=== PATIENT | male | born 1960 | race Caucasian/White ===

== ENCOUNTER 2023-02-17 09:55 | Inpatient (IN) ==
--- NOTE | 2023-02-10 10:25 | Anesthesiology Consultation ---
Date of Service February 10, 2023 Assessment & Plan (1) Encounter for pre-operative examination: Chart Review Chart Review: Acceptable Risk for Surgery and Patient NOT seen in Pre Admission Testing -COVID screening: Per PAT nursing assessment on 02/10/23. No known COVID-19 positive contacts or current COVID-19 related symptoms. Travel screen negative. Patient is partially vaccinated for Covid. At surgeon discretion if preop Covid testing being done. History Surgery Operation Date: 02/17/23 11:35 Proposed Procedures p L4-L5 Decompression and Fusion, L5-S1 Hardware Removal Spinal Cord Monitoring - Jackson Cuevas DO Height/Weight Height: 5 ft 7 in Weight: 107.501 kg Allergies Allergy/AdvReac Type Severity Reaction Status Date / Time No Known Allergies Allergy Unknown Verified 02/10/23 09:48 Medications Home Medications Medication Instructions Recorded Confirmed Last Taken gabapentin 300 mg capsule 600 mg PO HS 02/10/23 02/10/23 Unknown Past Medical History Medical History History of COVID-03 Sep 2022 > not hospitalized Migraine none for a while Neuropathy right side down leg on occasion Osteoarthritis Past Surgical History Surgical History Fusion of spine lumbar History of colonoscopy History of nasal septoplasty History of tonsillectomy History of tooth extraction History of total knee replacement right 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 Hx of umbilical hernia repair Social History Smoking Status: Former smoker tobacco type: smokeless tobacco Do You Dip or Chew Tobacco: Yes (advised npo status by nursing) Smoking End Date: 2010 Hx Alcohol Use: No Hx Substance Use: No substance use type: does not use Lab Results Anesthesia Preop Results Results Anesthesia Widget: WBC 8.66 K/ul (4.8-10.8) 02/04/23 Hgb 15.1 g/dl (14.0-18.0) 02/04/23 Hct 42.0 % (42.0-52.0) 02/04/23 Plt 283 K/uL (130-400) 02/04/23 Na 138 mmol/L (136-145) 02/04/23 K 3.9 mmol/L (3.5-5.1) 02/04/23 Cl 104 mmol/L (98-107) 02/04/23 CO2 25 mmol/L (21-32) 02/04/23 BUN 18 mg/dl (6-23) 02/04/23 Creat 0.85 mg/dl (0.6-1.4) 02/04/23 Glucose Level 86 mg/dl (70-99(Fasting)) 02/04/23 PT 10.6 Seconds (9.0-12.0) 02/04/23 PTT 28.8 Seconds (21.0-31.0) 02/04/23 INR 1.0 (0.9-1.1) 02/04/23 Urine Color Yellow 02/04/23 Urine Appearance Clear (Clear) 02/04/23 Urine pH 5.5 (4.5-7.5) 02/04/23 Urine Specific Elizabeth 1.025 (1.000-1.030) 02/04/23 Urine Protein Negative (Negative) 02/04/23 Urine Glucose (UA) Negative (Negative) 02/04/23 Urine Ketones Negative (Negative) 02/04/23 Urine Blood Trace (Negative) H 02/04/23 Urine Nitrite Negative (Negative) 02/04/23 Urine Bilirubin Negative (Negative) 02/04/23 Urine Urobilinogen Negative (Negative) 02/04/23 Urine Leukocyte Esterase Negative (Negative) 02/04/23 Urine WBC (Auto) 1-5 /hpf (0-5) 02/04/23 Urine RBC (Auto) 5-10 /hpf (0-4) H 02/04/23 Urine Hyaline Casts (Auto) 1-5 /lpf (0-5) 02/04/23 Urine Epithelial Cells (Auto) 0-5 /lpf (0-5) 02/04/23 Urine Bacteria (Auto) Negative (Negative) 02/04/23 Blood Type O Negative 02/04/23 Antibody Screen NEGATIVE 02/04/23 Testing Laboratory Results 02/04/23= URINE CULTURE: Three types of organisms present, all low counts probable skin zacarias Electrocardiogram Date: 02/04/23 Findings: + SB @ (59bpm) Otherwise normal EKG per cardio Chest X-Ray Date: 02/04/23 Findings: + NAD FINDINGS: PA and lateral chest radiographs are compared to study dated 04/13/2010. The heart is mildly enlarged. The pulmonary vasculature is noncongested. Chronic interstitial thickening is similar to previous. The lungs and pleural spaces are clear. There is no pneumothorax. The skeletal structures are osteopenic. The bony thorax appears intact.
[~2023-02-17 09:55] MED LIST: ACETAMINOPHEN 500 MG TAB PO SCH; CeleBREX 200 MG CAP PO SCH; GABAPENTIN 600 MG DOSE PO SCH; LR 15ML/HR IV SCH; ceFAZolin 2000MG 2,000 MG/15 ML SYR IV SCH
[2023-02-17] MEDS ORDERED: HYDROmorphone INJ 1 MG/ML SYRINGE IV PRN ×2 (11:08→15:29)
[2023-02-17] MEDS ORDERED: ePHEDrine sulfate 50 MG/ML AMP IV PRN (11:08)
[2023-02-17] MEDS ORDERED: ONDANSETRON INJ 2 MG/ML 2 ML VIAL IV PRN ×2 (11:08→15:29)
[2023-02-17] MEDS ORDERED: ATROPINE SULFATE 0.1 MG/ML 10ML SYR IV PRN (11:08)
--- NOTE | 2023-02-17 11:20 | History & Physical Bridge Note ---
Date of Service February 17, 2023 History & Physical Bridge Note I have examined the patient, reviewed the History & Physical and in the interval since the performance of the History & Physical I have noted the following changes of clinical significance: no changes noted
--- NOTE | 2023-02-17 11:21 | History & Physical Report ---
Date of Service February 17, 2023 Assessment & Plan (1) Neurogenic claudication due to lumbar spinal stenosis: Plan: L4-L5 decompression and fusion, L5-S1 hardware removal History of Present Illness Chief Complaint: Back and leg pain Primary Care Provider: Iban Richardson MD This is a 8-year-old male who presents with chronic persistent back and leg pain after failing course of nonoperative care is here for surgical invention. Allergies Allergy/AdvReac Type Severity Reaction Status Date / Time No Known Allergies Allergy Unknown Verified 02/17/23 10:30 Home Medications Medication Instructions Recorded Confirmed Type No Known Home Medications 02/17/23 02/17/23 History Past Med/Surg History Medical History History of COVID-03 Sep 2022 > not hospitalized Migraine none for a while Neuropathy right side down leg on occasion Osteoarthritis Surgical History Fusion of spine lumbar History of colonoscopy History of nasal septoplasty History of tonsillectomy History of tooth extraction History of total knee replacement right 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 Hx of umbilical hernia repair Social History Smoking Status: Former smoker Smoking End Date: 2010; Second Hand Exposure: No; Do You Dip or Chew Tobacco: Yes (advised npo status by nursing); Tobacco Cessation Education Requested by Patient: No Hx Alcohol Use: No Hx Substance Use: No Preferred Language: Ivorian Communication Ability: Effective Diamond Sorter Required: No Beliefs That Will Affect Care: None Current Living Situation: Spouse Other Information That Helps Us Care for You: No Feels Safe at Home: Yes Safety Concerns: Feels Safe At This Time Assistive Devices: Glasses Physical Exam Physical Exam: Patient is alert and oriented Heart regular rhythm Lungs clear Results & Data Results & Data Vital Signs (Past 12 Hours) Vital Signs Temp Pulse Resp BP Pulse Ox O2 Del Method 02/17/23 10:33 36.4 C L 50 L 20 142/78 H 97 Room Air
[2023-02-17] MEDS ORDERED: BUPIVACAINE/EPINEPHRINE 0.25% 1:200,000 30 ML VIAL ONE (11:24)
[2023-02-17] MEDS ORDERED: ceFAZolin 330 MG/ML 1 GM VIAL ONE (11:24)
[2023-02-17] MEDS ORDERED: HYDROmorphone INJ 2 MG/ML SYR/VIAL ONE (11:30)
[2023-02-17] MEDS ORDERED: DEXAMETHASONE SOD INJ 4 MG/ML VIAL ONE (11:30)
[2023-02-17] MEDS ORDERED: ONDANSETRON INJ 2 MG/ML 2 ML VIAL ONE (11:30)
[2023-02-17] MEDS ORDERED: MIDAZOLAM HCL 1 MG/ML 2ML VIAL ONE (11:30)
[2023-02-17] MEDS ORDERED: GLYCOPYRROLATE 0.2 MG/ML VIAL ONE (11:30)
[2023-02-17] MEDS ORDERED: PROPOFOL IV EMULSION 10 MG/ML 20 ML VIAL IV ONE (11:30)
[2023-02-17] MEDS ORDERED: NEOSTIGMINE METHYLSULFATE 1 MG/ML 10ML VIAL ONE (11:30)
[2023-02-17] MEDS ORDERED: LIDOCAINE 2% MPF LOCAL 5 ML VIAL ONE (11:30)
[2023-02-17] MEDS ORDERED: ROCURONIUM BROMIDE 10 MG/ML 5 ML VIAL IV ONE (11:30)
[2023-02-17] MEDS ORDERED: FLOSEAL HEMOSTATIC MATRIX 10ML TOP ONE (13:47)
--- NOTE | 2023-02-17 13:57 | Operative Report ---
Post Operative Report Pre & Post Diagnosis Operation Date: 02/17/23 11:25 Pre-Op Diagnosis: Neurogenic Claudication due to Lumbar Spinal Stenosis Post-Op Diagnosis: Neurogenic Claudication due to Lumbar Spinal Stenosis I identified the patient and participated in the time-out.: Yes Procedure Operation Date: 02/17/23 11:25 Actual Procedures #1 removal of instrumentation L5-S1. #2 exploration of fusion L5-S1. #3 lumbar decompression bilaterally facetectomies and foraminotomies L3-L4 L4-5 per #4 posterior spinal fusion L4-5. #5 placement of instrumentation L4-L5. #6 interbody fusion L4-5 per #7 placement of Spira 15 x 26 mm at L4-5. #8 placement locally harvested morselized autograft in the posterior gutters. #9 placement of I factor amount of the test and interbody space and posterior gutters. Surgeon Jackson Cuevas, DO Government Relations Director Nata Villalba Estimated Blood Loss 600 Findings See Below The patient is 5 foot 7 weighing over 106 kg and a BMI in excess of 36. The patient's body habitus combined with an EBL of greater than 600 cc created significant technical difficulty and at least 50% increased to the operative time. Specimens None Indications This is a 62-year-old male who presents above-mentioned diagnosis after failed course of nonoperative care is here for surgical invention. Description of Procedure Patient was met with identified informed consent obtained. Patient was then taken to the operative suite underwent intubation placed in a prone position on the Joe table atop the Karel frame. All bony promises well-padded eyes inspected to ensure no external pressure placed upon the. This point the lumbar spine was prepped and draped in normal sterile fashion. Sharp dissection with the assistance of Bovie cautery performed down to and exposing the lamina and transverse processes of L4 and instrumentation L5-S1 bilaterally. And then proceeded move the hardware bilaterally explore the fusion mass noting it to be mature and intact. I then performed a complete laminectomy of L4 partial mapping L3 including bilateral medial facetectomies and foraminotomies addressing severe spinal stenosis. Pedicle screws were then placed in L4 and L5 bilaterally with assistance of fluoroscopy and the properly sized estella placed. By way of a trans foraminal approach on the right complete discectomy of L for L5 was performed endplates curetted to subcortical bleeding bone and a 15 x 26 mm Spira cage with I factor tapped in position. The rods were then locked into final position bilaterally. The transverse processes of L4 and L5 burred to subcortically and bone. I factor amount of the test and locally harvested morselized autograft was placed in the posterior gutters. 15 round SANDRA drain inserted. The incision was then closed with 1 Vicryl the fascia 2-0 Vicryl subcutaneously and 4 Monocryl for final skin closure. Steri-Strips and a sterile dressing placed. Patient awakened and taken to PACU in stable condition. Please note spinal cord monitoring was utilized at the procedure no changes noted. Lastly Nata Villalba was present at the entire surgery and while the patient positioning complex portion of the surgery and final skin closure. I attest to the content of the Intraoperative Record and any orders documented therein. Any exceptions are noted below.
[2023-02-17] MEDS: fentaNYL citrate PF 100 MCG/2 ML VIAL IV PRN ×2 (14:17→14:29)
--- NOTE | 2023-02-17 15:00 | Anesthesiology Progress Note ---
Date of Service February 17, 2023 Anesthesia Post Procedure Vital Signs Vital Signs: Temp Pulse Pulse Resp BP BP Pulse Ox 02/17/23 14:30 70 12 111/69 97 02/17/23 14:40 72 12 101/68 93 02/17/23 14:20 84 10 L 103/69 96 02/17/23 14:10 96.8 F L 96 H 12 127/104 H 98 02/17/23 10:33 97.5 F L 50 L 20 142/78 H 97 O2 Del Method O2 Flow Rate 02/17/23 14:30 Oxymask 6 02/17/23 14:40 Oxymask 3 02/17/23 14:20 Oxymask 6 02/17/23 14:10 Nasal Cannula 3 02/17/23 10:33 Room Air Pain Intensity Lower Back: Pain Intensity: 5 Right Leg: Pain Intensity: 8 Transfer of Care Handoff Completed per policy Notes Mental Status: alert / awake / arousable and participated in evaluation Patient Amnestic to Procedure: Yes Nausea / Vomiting: adequately controlled Pain: adequately controlled Airway Patency, RR, SpO2: stable & adequate BP & HR: stable & adequate Hydration State: stable & adequate Anesthetic Complications: no major complications apparent and Pt Satisfied with anesthetic care
--- NOTE | 2023-02-17 15:11 | Fluoroscopy Report ---
FL lumbar spine 2-3V CLINICAL HISTORY: L4-5 DFI/L5-S1 HR COMPARISON STUDY: None. FLUOROSCOPY TIME: 8 seconds. EXPOSURE DOSE: 7.88 mGy FLUOROSCOPIC IMAGES: 2 FINDINGS: Fluoroscopy was provided during L4-L5 discectomy, posterior decompression and bilateral ped icle screw fusion. The hardware is intact. Hardware was removed at the L5-S1 level. An L5-S1 disc spa cer remains in place. IMPRESSION: Fluoroscopy provided during hardware removal and subsequent L4-L5 discectomy, posterior decompression and bilateral pedicle screw fusion. ACT 112: Negative or not required by law. Electronically signed by: Kimani Isaacs M.D. 02/17/2023 3:10 PM
[2023-02-17] MEDS ORDERED: MAGNESIUM HYDROXIDE SUSP 30 ML UDC PO PRN (15:29)
[2023-02-17] MEDS ORDERED: ACETAMINOPHEN 1,000 MG/100 ML VIAL IV PRN (15:29)
[2023-02-17] MEDS ORDERED: FAMOTIDINE 20 MG TAB PO PRN (15:29)
[2023-02-17] MEDS ORDERED: METOCLOPRAMIDE HCL INJ 5 MG/ML 2 ML VIAL IV PRN (15:29)
[2023-02-17] MEDS ORDERED: LORazepam 2 MG/1 ML VIAL IV PRN (15:29)
[2023-02-17] MEDS ORDERED: SOD PHOSPHATE/SOD BIPHOSPHATE ENEMA 132 ML BTL PR PRN (15:29)
[2023-02-17] MEDS ORDERED: hydrOXYzine HCl 25 MG TAB PO PRN (15:29)
[2023-02-17] MEDS ORDERED: DO NOT ADMINISTER FLU VACCINE PRN (15:29)
[2023-02-17] MEDS ORDERED: LORazepam 0.5 MG TAB PO PRN (15:29)
[2023-02-17] MEDS ORDERED: DO NOT ADMINISTER PNEUMOCOCCAL VACCINE PRN (15:29)
[2023-02-17] MEDS ORDERED: traMADol HCL 50 MG TABLET PO PRN (15:29)
[2023-02-17] MEDS ORDERED: ONDANSETRON 4 MG OD TAB PO PRN (15:29)
[2023-02-17] MEDS ORDERED: ACETAMINOPHEN 500 MG TAB PO PRN (15:29)
[2023-02-17] MEDS ORDERED: PROMETHAZINE HCL 12.5 MG in SODIUM CHLORIDE 0.9% 50 ML IV PRN (15:29)
[2023-02-17] MEDS ORDERED: NALOXONE HCL 0.4 MG/1 ML VIAL/CARP IV PRN (15:29)
[2023-02-17] MEDS ORDERED: diphenhydrAMINE Capsule 25 MG CAP PO PRN (15:29)
[2023-02-17] MEDS ORDERED: ALUMINUM/MAGNESIUM SUSP 30 ML UDC PO PRN (15:29)
[2023-02-17] MEDS ORDERED: bisacodyL 10 MG SUPP PR PRN (15:29)
[2023-02-17] MEDS ORDERED: HYDROmorphone INJ 0.5 MG/0.5 ML SYR IV PRN (15:29)
[2023-02-17] MEDS: LACTATED RINGER'S 1,000 ML IV SCH ×2 (15:37→17:38)
--- NOTE | 2023-02-17 16:19 | Hospitalist Consultation ---
Date of Consultation February 17, 2023 Assessment & Plan (1) Neurogenic claudication due to lumbar spinal stenosis: - Pain management, bowel regimen and DVT ppx per the primary team - PT/OT consults, pt is planning on outpatient therapy - Follow am CBC to monitor for acute blood loss (2) Obesity (BMI 35.0-39.9 without comorbidity): - BMI of 36.8, diet and exercise to be encouraged for obesity s/p spinal surgery (3) Seasonal allergies: - Pt may resume seasonal allergy medications if needed during hospital stay (4) Tobacco use: - Chews snuff, 1 can in two days for adult life, cessation encouraged at bedside. - Pt denies the need for nicotine patch DVT ppx: - teds, scds CODE: FULL Dispo: From home, lives with who is present at bedside. Likely to remain in the hospital x 1-2 days A total of 40 minutes were spent with greater than 50% of that time face to face with the patient, personally reviewing all current laboratories, imaging studies, past medication reconciliation, outpatient chart review, and discussion with specialists to collaborate care for the patient with attending. Please see attending documentation for corrections and/or additions. Supervising Physician Co-Signing Physician Notes Patient seen and examined at bedside as consulted for medical management status post lumbar spine surgery for neurogenic claudication due to lumbar spinal stenosis. Patient was lying in bed, on room air, hemodynamically stable, denies any flulike illness or febrile illness in the last 1 week. Patient reports improvement in his right greater than left lower extremity radicular pain does report operative site pain. DVT prophylaxis, PT/OT per primary. Incentive spirometer. Resume home meds as able. Patient not on months of home meds. On examination: GENERAL: Alert and oriented x3. NAD, on 2L NC O2, obese class II HEENT: No pallor, no icterus. Pupils equal, round and reactive to light. Oral mucosa moist. NECK: No JVD, no neck masses. HEART: S1 and S2 heard. Regular rate and rhythm. No murmur, no gallop. RESPIRATORY SYSTEM: Normal AP diameter. No accessory muscle use. No wheezing, no crackles. ABDOMEN: Soft, bowel sounds present, nontender, no distention. CENTRAL NERVOUS SYSTEM: No facial droop. Speech is clear. Obeys simple commands. Moves extremities. EXTREMITIES: No edema, no erythema seen. Low back with clean dressing without soakage, SANDRA drain with minimal serosanguineous collection noted. Distal neurovascular status WNL. I have seen and examined the patient and have discussed the case with the provider above. I agree with the assessment and plan as stated. History of Present Illness Reason for Consultation: Medical management Requesting Physician: Dr. Cuevas Attending Physician: Jackson Cuevas, DO History of Present Illness This is a 62-year-old male with PMHx of prediabetes, chronic allergic rhinitis, with history of previous lumbar surgery who presents to the hospital for elective lumbar decompression fusion by Dr. Cuevas. His is present with him at bedside. Right after coming up from PACU had some intermittent nausea, however nursing at bedside reports that he drank an entire cup full of water after coming up from PACU. He reports his mouth is dry. He reports some left- sided foot numbness compared to right, but is able to move his lower extremities bilaterally without difficulty. Last bowel movement was this morning, reports history of constipation with previous lumbar surgeries. Pt is pain free, joking, good sense of humor and sarcastic at times. Pt has prescription for certerizine and for fluticasone nasal spray for seasonal allergies but has not started taking it yet. He does not take any other medications as he was told by a doctor to wean off gapabentin as outpatient prior to surgery and has done so. Pt is enjoying chocolate ice cream now. Allergies Allergy/AdvReac Type Severity Reaction Status Date / Time No Known Allergies Allergy Unknown Verified 02/17/23 10:30 Home Medications Medication Instructions Recorded Confirmed Type cetirizine 10 mg tablet 10 mg PO DAILY 02/17/23 02/17/23 History fluticasone propionate 50 2 spray intranasal QAM 02/17/23 02/17/23 History mcg/actuation nasal spray,suspension Patient History Medical History History of COVID-03 Sep 2022 > not hospitalized Migraine none for a while Neuropathy right side down leg on occasion Osteoarthritis Surgical History Fusion of spine lumbar History of colonoscopy History of nasal septoplasty History of tonsillectomy History of tooth extraction History of total knee replacement right 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 Hx of umbilical hernia repair Family History (Updated 02/17/23 @ 16:15 by Royd Ontiveros PA-C) Other Cancer Diabetes Social History Smoking Status: Never smoker Smoking End Date: 2010; Second Hand Exposure: No; Do You Dip or Chew Tobacco: Yes (advised npo status by nursing); Tobacco Cessation Education Requested by Patient: No Hx Alcohol Use: No Hx Substance Use: No Preferred Language: Hungarian Communication Ability: Effective Welcome Desk Agent Required: No Beliefs That Will Affect Care: None Current Living Situation: Spouse Other Information That Helps Us Care for You: No Feels Safe at Home: Yes Safety Concerns: Feels Safe At This Time Assistive Devices: Cane and Walker Review of Systems Review of Systems: Constitutional: No fever, sweats or chills Eyes: No diplopia, no worsening or blurred vision ENT: normal hearing, no trouble swallowing Respiratory: No cough, sputum, dyspnea at rest or on exertion Cardiovascular: No chest pain, tightness or palpitations Abdomen: No pain, nausea, vomiting, diarrhea or constipation Musculoskeletal: No joint pain, calf pain, swelling Neurologic: No weakness, numbness/tingling, or balance problems Psychiatric: No anxiety or depression Skin: No rash or itch Physical Exam Physical Exam: General: awake, alert, no apparent distress, + obese with BMI of 36.8 Head: Normocephalic, atraumatic ENT: PERRL, EOMI, no pharyngeal exudate, mucous membranes moist Chest: Clear to auscultation, on room air, no adventitious breath sounds Cardiac: Regular rate and rhythm, no murmur, no JVD, normal peripheral pulses, good capillary refill Abdominal: NABS x 4 quadrants, soft, nondistended, nontender to palpation, no rebound or guarding Back: dressing c/d/i, SANDRA drain in place with serosanginous bloody outs Extremities: Normal inspection, no peripheral edema or erythema, calfs nontender to palpation Psych: Normal mood and affect Neuro: AAO x 3, strength intact bilaterally and rated 5/5, no motor deficits, speech is clear, Left sided foot numbness compared to right, no other peripheral sensory deficits Results & Data Results & Data Vital Signs (Past 12 Hours) Vital Signs Temp Pulse Pulse Resp BP BP Pulse Ox 02/17/23 15:50 69 16 107/69 95 02/17/23 15:30 36.7 C 86 18 98/46 L 98 02/17/23 14:30 70 12 111/69 97 02/17/23 15:10 77 12 125/71 98 02/17/23 15:00 68 12 113/63 93 02/17/23 14:50 36.1 C L 74 12 92/58 L 93 02/17/23 14:40 72 12 101/68 93 02/17/23 14:20 84 10 L 103/69 96 02/17/23 14:10 36.0 C L 96 H 12 127/104 H 98 02/17/23 10:33 36.4 C L 50 L 20 142/78 H 97 O2 Del Method O2 Flow Rate 02/17/23 15:50 Nasal Cannula 2 02/17/23 15:30 Nasal Cannula 2 02/17/23 14:30 Oxymask 6 02/17/23 15:10 Nasal Cannula 2 02/17/23 15:00 Nasal Cannula 2 02/17/23 14:50 Nasal Cannula 2 02/17/23 14:40 Oxymask 3 02/17/23 14:20 Oxymask 6 02/17/23 14:10 Nasal Cannula 3 02/17/23 10:33 Room Air
[2023-02-17] MEDS: oxyCODONE HCL IR 5 MG TAB (IMMEDIATE RELEASE) PO PRN (21:20)
[2023-02-17] MEDS: DOCUSATE SODIUM/SENNA 50/8.6MG TAB PO SCH (21:21)
[2023-02-17] MEDS: ceFAZolin 2000MG 2,000 MG/15 ML SYR IV SCH (21:21)
[2023-02-18] MEDS: ceFAZolin 2000MG 2,000 MG/15 ML SYR IV SCH (04:47)
[2023-02-18] MEDS: POLYETHYLENE (MIRALAX) 17 GM PACK PO SCH ×4 (05:35→21:57)
[2023-02-18] MEDS ORDERED: SODIUM CHLORIDE 0.9% 1000ML 1,000 ML IV SCH (07:45)
[2023-02-18 07:56] LABS: Basophils # (auto) 0.03 K/uL (0-0.2); Basophils % (auto) 0.2 %; Eosinophils # (auto) 0.01 K/uL (0-0.50); Eosinophils % (auto) 0.1 %; Hematocrit (blood only) 36.6 % (42.0-52.0); Hemoglobin 12.7 g/dl (14.0-18.0); Immature Granulocytes # (auto) 0.42 K/uL (0.01-0.20); Immature Granulocytes % (auto) 2.3 %; Lymphocytes # (auto) 1.44 K/uL (1.2-3.4); Lymphocytes % (auto) 7.8 %; Mean Corpuscular Hemoglobin 30.7 pg (25.0-34.0); Mean Corpuscular Hgb Conc 34.7 g/dL (32.0-36.0); Mean Corpuscular Volume 88.4 fL (80.0-100.0); Mean Platelet Volume 10.1 fL (9.4-12.4); Monocytes # (auto) 1.26 K/uL (0.11-0.59); Monocytes % (auto) 6.8 %; Neutrophils # (auto) 15.37 K/uL (1.40-6.50); Neutrophils % (auto) 82.8 %; Platelet Count 280 K/uL (130-400); RDW Standard Deviation 42.3 fL (36.4-46.3); Red Blood Count 4.14 M/uL (4.70-6.10); White Blood Count 18.53 K/ul (4.8-10.8)
[2023-02-18] MEDS: dexAMETHasone 6 MG in SYRINGE 0 ML IV SCH (07:57)
[2023-02-18] MEDS: oxyCODONE HCL IR 5 MG TAB (IMMEDIATE RELEASE) PO PRN ×3 (08:02→21:54)
[2023-02-18 08:23] LABS: BUN Creatinine Ratio 20.2 (10-20); Calcium 9.2 mg/dl (8.6-10.3); Creatinine Clr Calc Pharmacy 102.7 ml/min; Est GFR (African American) 107.7 ml/min; Est GFR (Non-African American) 92.9 ml/min; Potassium 4.3 mmol/L (3.5-5.1)
--- NOTE | 2023-02-18 12:10 | Orthopedic Progress Note ---
Date of Service February 18, 2023 Assessment & Plan (1) Neurogenic claudication due to lumbar spinal stenosis: Plan: This time we will continue physical therapy monitor his SANDRA operatively discharge home tomorrow. Admission and Anticipated Discharge Date Admission Date: February 17, 2023 Subjective Back pain controlled leg pain markedly improved Physical Exam Physical Exam: Patient is in the chair at the bedside. Is constricted testing. Appears co mfortable. Results & Data Vital Signs (Past 12 Hours) Vital Signs Temp Pulse Resp BP BP Pulse Ox O2 Del Method 02/18/23 11:08 57 L 16 103/63 94 Room Air 02/18/23 07:51 69 117/75 02/18/23 07:27 36.5 C 64 16 90/50 L 95 Room Air 02/18/23 02:09 108/67 02/18/23 02:05 36.8 C 77 18 92/57 L 95 Room Air
--- NOTE | 2023-02-18 16:28 | Hospitalist Progress Note ---
Date of Service February 18, 2023 Assessment & Plan (1) Neurogenic claudication due to lumbar spinal stenosis: Plan: Status post L4/L5 decompression fusion L5-S1 hardware removal Patient stable overall Hemoglobin 12, repeat tomorrow Denies dizziness, chest pain, shortness of breath We will monitor closely (2) Obesity (BMI 35.0-39.9 without comorbidity): Plan: - BMI of 36.8, diet and exercise advised (3) Seasonal allergies: Plan: No symptoms (4) Tobacco use: Plan: Counseling done DVT ppx: - teds, scds CODE: FULL Admission and Anticipated Discharge Date Admission Date: February 17, 2023 Subjective Follow-up for status post back surgery, etc. Seen resting in bed, in good spirits States he feels fine overall Ambulated in the hallways twice with no symptoms no chest pain, dyspnea, palpitations, dizziness Denies back pain No other new symptoms Review of Systems Review of Systems: all noted and negative except for above Physical Exam Physical Exam: General- oriented x 3, not in distress, speaks in sentences with no effort or accessory muscle use Eyes- anicteric Neck- no JVD Lungs- clear breath sounds bilaterally, no rales/wheezes Heart- normal rate, regular rhythm; no murmurs Abdomen- normal bowel sounds, nondistended, soft, nontender Extremities- no pretibial edema, no calf tenderness Back-dressing in place, drain in place-serosanguineous output Neuro- alert, oriented x 3; no gross focal neurologic deficits Skin- warm & dry Results & Data Results & Data Vital Signs (Past 12 Hours) Vital Signs Temp Pulse Resp BP Pulse Ox O2 Del Method 02/18/23 14:23 36.6 C 73 16 130/71 95 Room Air 02/18/23 11:08 57 L 16 103/63 94 Room Air 02/18/23 07:51 69 117/75 02/18/23 07:27 36.5 C 64 16 90/50 L 95 Room Air
[2023-02-18] MEDS: DOCUSATE SODIUM/SENNA 50/8.6MG TAB PO SCH (21:54)
[2023-02-19] MEDS: POLYETHYLENE (MIRALAX) 17 GM PACK PO SCH (05:51)
[2023-02-19 08:15] LABS: Hemoglobin 12.2 g/dl (14.0-18.0); Mean Corpuscular Hemoglobin 30.7 pg (25.0-34.0); Mean Corpuscular Hgb Conc 34.9 g/dL (32.0-36.0); Mean Corpuscular Volume 87.9 fL (80.0-100.0); Mean Platelet Volume 9.8 fL (9.4-12.4); Platelet Count 277 K/uL (130-400); RDW Coefficient of Variation 13.2 % (11.5-14.5); RDW Standard Deviation 42.5 fL (36.4-46.3); Red Blood Count 3.98 M/uL (4.70-6.10); White Blood Count 16.65 K/ul (4.8-10.8)
--- NOTE | 2023-02-19 08:28 | Discharge Summary ---
Date of Service February 19, 2023 Admission HPI Per Admitting Provider This is a 8-year-old male who presents with chronic persistent back and leg pain after failing course of nonoperative care is here for surgical invention. Principal Diagnosis Lumbar spinal stenosis with neurogenic claudication Discharge Data Allergies Allergy/AdvReac Type Severity Reaction Status Date / Time No Known Allergies Allergy Unknown Verified 02/17/23 10:30 Consultations 02/17/23 15:29 Consult Hospitalist Routine Procedures Performed Operation Date: 02/17/23 11:25 Actual Procedures p L4-L5 Decompression and Fusion, L5-S1 Hardware Removal, Spinal Cord Monitoring(Not Applicable) - Jackson Cuevas DO Ordered Studies 02/17/23 11:25 [place] lumbar spine 2-3V Routine Hospital Course (1) Neurogenic claudication due to lumbar spinal stenosis: Patient underwent lumbar decompression fusion tolerated this well was taken to orthopedic for postoperative. Postop day 1 is up and ambulating progress postop day #2. SANDRA drain decreased appropriately. Excellent strength testing. Simply discharged home. Discharge orders instructions from the chart for further review. Total Time Total Time Spent Total Time Spent (In Minutes): 20 minutes Discharge Plan Discharge Items Patient Disposition: Home - Self-Care Reason For Visit: Spinal Stenosis, Lumbar Region with Neurogenic Discharge Diagnosis: Lumbar spinal stenosis with neurogenic claudication Activity: As commented below Non-emergency contact: Primary Care Provider Call non-emergency contact if: you have any medication questions Follow-up/Referrals: Iban Richardson MD [Primary Care Provider] - Diet: Regular Addtl Attending Provider Instructions: ACTIVITY RECOMMENDATIONS: SELF CARE INSTRUCTIONS AFTER THORACIC/LUMBAR FUSIONS 1. You may walk to your tolerance. It is good exercise for your legs and back. Expect some back and intermittent leg aches and pains. 2. You may perform "counter-top" level activities (make a sandwich, nelda with a project, etc.). 3. No bending or lifting of more than 10 pounds or back twisting of any nature (roll like a log when turning in bed). 4. You may ride in a car for 20-30 minutes at a time. No driving until after your first visit with your doctor. 5. Frequent changes of position and restricting sitting to 30 minutes at a time will help limit the amount of back spasms and stiffness you may experience. 6. You may discontinue the use of ambulatory aids (cane, crutches, etc.) once your strength and confidence allow. 7. You may plating equipment tender the shower and let water strike your incision when you arrive home at least once daily. Do not take a tub bath, sit in a hot tub or go into a swimming pool until after your first recheck in the office. SPECIAL CARE INSTRUCTIONS: VERY IMPORTANT TO READ AND REVIEW A. Your surgical incision has been closed with a cosmetic suture under the skin that will dissolve in about 6 weeks. In 14 days, you can use a pair of clean scissors and cut the suture that is left outside of the skin at the ends of your incision. 1. The small skin tapes can be removed 7 days after surgery if they have not fallen off by that point. 2. You may keep the wound open to air as much as possible to promote healing after post-op day number 5 unless told otherwise by your doctor. 3. If you think the wound looks like it is becoming infected (redness or worsening drainage) and/or you are experiencing fever, chill or worsening back pain and muscle spasms, contact the office so that we may evaluate you as soon as possible. B. Complications are uncommon, but please contact us if you have any signs or symptoms of: 1. wound infection (fever higher than 102.5 degrees F, redness, separation of wound, drainage, or increasing pain from the incision) 2. blood clots in legs (pain, swelling, redness and warmth in legs) 3. urinary tract infection (fever higher than 102.5 degrees F, burning upon urination or increased frequency of urination) 4. nerve problems (inability to walk on your toes or heels, numbness, loss of bowel or bladder control) 5. any other symptoms that concern you C. Please call the office at if you have any concerns or questions about your operation or recovery. D. No smoking! Smoking drastically decreases the chance of a solid fusion. E. Do not take any anti-inflammatory medications (Indocin, Advil, Motrin, Aspirin, Naprosyn, etc.) as these may inhibit the chance of a solid fusion. Tylenol is okay to take for pain. MANAGING PAIN AFTER SPINAL SURGERY 1. Narcotic medication is intended for short-term use and will be provided for surgical pain. Surgical pain usually lasts for a period of 4-6 weeks. Narcotic medication includes Percocet, Vicodin, Darvocet, Tylenol #3 or Lortab. 2. Longer-term pain is more appropriately treated with non-narcotic medication such as Tylenol ES. 3. Muscle spasm is not appropriately treated with narcotics. Muscle relaxers such as Soma, Flexeril or Skelaxin can be used along with Tylenol ES. 4. Remember that we all live with some "aches and pains". This is not unusual or uncommon after an injury or as we get older. a. Back pain is expected and may include muscle spasms for 4 to 6 weeks after surgery. The pain should gradually improve. If the pain worsens for no apparent reason, please contact the office. b. Intermittent leg pain may also be experienced and should not be concerned about unless it worsens for no apparent reason. If so, please contact the office. 5. We will provide appropriate medication within the normal guidelines of their prescribed use. We will also be very cautious and aware of potential abuse and extended duration of patients' medication needs. a. Pain medications are for your comfort and to assist with sleep and rest so that the tissue can heal. They are not provided in order to return to normal activity and should not be used through the day. To do so or worsening pain at night can result from ongoing tissue damage and development of tolerance to the prescribed medicine. 6. Please allow 2-3 days to process refills. Prescriptions will not be mailed but must be picked up at the office. FOLLOW UP VISIT: Keep your scheduled follow-up appointment. Any questions, please call the office at . Pending Studies at Discharge: No Stand-Alone Forms: My [facility] [employer], Smoking Cessation Medications and DC Order Prescriptions: New tramadol 50 mg tablet 50 mg PO Q6H PRN (Reason: pain, moderate) Qty: 30 0RF oxycodone-acetaminophen [Percocet] 5-325 mg tablet 1 tab PO Q8H Qty: 30 0RF Continued cetirizine 10 mg tablet 10 mg PO DAILY fluticasone propionate 50 mcg/actuation spray,suspension 2 spray INTRANASAL QAM Discharge Orders: Discharge Order (Routine); Ordered 02/19/23 Ordered By: Jackson Cuevas Admission Data Admit Date/Time: 04/04/23 14:00 Attending Provider: Jackson Cuevas Admit Provider: Jackson Cuevas Primary Care Provider: Iban Richardson Other Providers: Kaylin Butcher ; Santos Armando
[2023-02-19] MEDS: oxyCODONE HCL IR 5 MG TAB (IMMEDIATE RELEASE) PO PRN (08:48)
[2023-02-19] MEDS: dexAMETHasone 6 MG in SYRINGE 0 ML IV SCH (08:49)
--- NOTE | 2023-02-19 14:45 | Hospitalist Progress Note ---
Date of Service February 19, 2023 Assessment & Plan (1) Neurogenic claudication due to lumbar spinal stenosis: Plan: POD#2 L4-L5 decompression and fusion, L5-S1 hardware removal by Dr. Cuevas Activity and wound care orders as per ortho Pain control with bowel regimen PT/OT Monitor H/H for acute blood loss anemia and transfuse blood products PRN EBL 600 cc, SANDRA output 640 cc Acute blood loss anemia Hgb 12.2 (15.1 preop) Patient asymptomatic, no indication for transfusion (2) Obesity (BMI 35.0-39.9 without comorbidity): Plan: BMI of 36.8, diet and exercise advised (3) Seasonal allergies: Plan: No symptoms (4) Tobacco use: Plan: Counseling done DVT PROPHYLAXIS TEDs/SCDs as per spine Ortho I spent a total of 20 minutes coordinating, documenting, and providing care for this patient excluding time spent in the performance of separately billed services. This included personally reviewing all current laboratories and imaging studies, medication reconciliation, outpatient chart review, and discussion with specialists. Admission and Anticipated Discharge Date Admission Date: February 17, 2023 Supervising Physician Co-Signing Physician Notes Attending Addendum: delayed entry date of service noted above care coordinated with KHRIS Mauricio please refer to her notes for full details, I agree with her notes patient seen and examined, records reviewed by myself as well diagnoses and plan of care as per KHRIS Armando MD Subjective Follow-up for medical management, s/p back surgery. Patient seen and examined. Eager to be discharged. Reports pain is well controlled. Ambulating in the hallways without difficulty. No chest pain or shortness of breath. Denies abdominal pain or nausea. Urinating without difficulty. + Flatus however no BM. Physical Exam Constitutional: WD/WN, vitals as above no acute distress Respiratory: normal respiratory effort, lungs clear to auscultation Cardiovascular: Rate/Rhythm: regular rate and regular rhythm Vessels: normal peripheral pulses Extremities: no edema Gastrointestinal (Abdomen): Inspection/Auscultation: normal bowel sounds Percussion/Palpation: abdomen soft; abdomen nontender Musculoskeletal: S/p back surgery, strength strong and equal BLE Skin: no rashes, warm and dry Neurologic: no focal motor deficits Psychiatric: A+Ox3, euthymic affect Results & Data Results & Data Vital Signs (Past 12 Hours) Vital Signs Temp Pulse Pulse Resp BP BP Pulse Ox 02/19/23 12:08 36.6 C 80 66 16 125/74 108/67 96 02/19/23 07:18 36.6 C 66 16 125/74 96 O2 Del Method 02/19/23 12:08 02/19/23 07:18 Room Air Laboratory Results Short CBC 02/19/23 Range/Units 08:01 WBC 16.65 H (4.8-10.8) K/ul Hgb 12.2 L (14.0-18.0) g/dl Hct 35.0 L (42.0-52.0) % Plt Count 277 (130-400) K/uL
== END 2023-02-19 12:30 | disposition home or self-care (01) | DRG 454 ==
LOC: ASU 09:55 → 3E 14:00
DX: Z87.891 Personal history of nicotine dependence; D62 Acute posthemorrhagic anemia; Z68.36 Body mass index [BMI] 36.0-36.9, adult; Z98.1 Arthrodesis status; Z79.899 Other long term (current) drug therapy; M48.062 Spinal stenosis, lumbar region with neurogenic claudication; F17.220 Nicotine dependence, chewing tobacco, uncomplicated; E66.9 Obesity, unspecified